=== PATIENT | male | born 1990 | race Two or more races ===

== ENCOUNTER 2021-11-04 18:43 | Emergency (ER) | payer MEDICAID, OTHER ==
[~2021-11-04] VITALS: Ht 188 cm; Wt 85.0 kg
[2021-11-04 18:54] VITALS: BP 117/83
[2021-11-04 19:34] LABS: Basophils # (auto) 0.1 10 ^3/uL (0-0.2); Basophils % (auto) 1.2 % (0.0-2.0); Eosinophils # (auto) 0.1 10 ^3/uL (0-0.8); Eosinophils % (auto) 1.4 % (0.0-7.0); Hematocrit 46.2 % (41.0-53.0); Hemoglobin 15.5 g/dL (13.5-17.5); Lymphocytes % (auto) 28.4 % (10.0-50.0); Mean Corpuscular Hemoglobin 29.3 pg (28.0-32.0); Mean Corpuscular Hgb Conc. 33.5 g/dL (32.0-36.0); Mean Corpuscular Volume 87.5 fL (80.0-100.0); Monocytes # (auto) 0.4 10 ^3/uL (0-1.3); Monocytes % (auto) 5.9 % (0.0-12.0); Neutrophils # (auto) 4.3 10 ^3/uL (1.6-8.6); Neutrophils % (auto) 63.1 % (37.0-80.0); Nucleated Red Blood Cells % 0.1 %; Red Blood Cells 5.28 10^6/uL (4.5-5.90); Red Cell Distribution Width 12.6 % (11.8-14.3); White Blood Cell 6.9 10^3/uL (4.4-10.8)
[2021-11-04 19:41] LABS: Albumin 4.8 g/dL (3.4-5.0); BUN/Creatinine Ratio 9.7; Magnesium 2.4 mg/dL (1.6-2.6)
[2021-11-04 19:43] LABS: Bilirubin, Total 0.6 mg/dL (0.2-1.0); Total Protein 7.8 g/dL (6.4-8.2)
[2021-11-04] MEDS ORDERED: ASPirin 81 mg TAB PO ONE (20:45)
[2021-11-04] MEDS ORDERED: NITROGLYCERIN 0.4 MG SL TAB SL ONE (20:45)
== END 2021-11-05 00:22 | disposition home or self-care (01) ==
LOC: ER 18:46
DX: R07.89 Other chest pain (principal)
CPT/HCPCS: 36415; 71045; 80053; 83735; 83880; 84484; 85025; 85379; 93005